=== PATIENT | male | born 1985 | race American Indian/Alaskan Native ===

== ENCOUNTER 2019-10-24 22:11 | Emergency (ER) | payer SELFPAY ==
--- NOTE | 2019-10-24 22:19 | Event Note ---
ED Screening Note Date of service: 10/24/19 Time: 22:18 ED Screening Note: This is a 34 y.o. M. that presents to the ER with sore throat and dysphasia for 3 days. This initial assessment/diagnostic orders/clinical plan/treatment(s) is/are subject to change based on patients health status, clinical progression and re- assessment by fellow clinical providers in the ED. Further treatment and workup at subsequent clinical providers discretion. Patient/guardian urged not to elope from the ED as their condition may be serious if not clinically assessed and managed. Initial orders include: Rapid strep
[2019-10-25] MEDS ORDERED: methylPREDNISolone Sod Succinate 125 MG/2 ML INJ IV ONE (02:05)
[2019-10-25] MEDS ORDERED: SODIUM CHLORIDE 0.9% 1000 ML 1,000 ML IV ONE (02:07)
[2019-10-25 02:32] LABS: Basophils # (Auto) 0.1 K/mm3 (0.0-0.1); Basophils % (Auto) 0.5 % (0.0-1.8); Eosinophils % (Auto) 0.1 % (0.0-4.3); Hematocrit 44.4 % (35.5-45.6); Hemoglobin 15.4 gm/dl (11.8-15.2); Lymphocytes # (Auto) 1.1 K/mm3 (1.2-5.4); Lymphocytes % (Auto) 7.5 % (13.4-35.0); Mean Corpuscular HGB Conc 35 % (32-34); Mean Corpuscular Volume 92 fl (84-94); Monocytes # (Auto) 1.7 K/mm3 (0.0-0.8); Monocytes % (Auto) 11.5 % (0.0-7.3); Platelet Count 254 K/mm3 (140-440); Red Blood Count 4.82 M/mm3 (3.65-5.03); Red Cell Distribution Width 12.9 % (13.2-15.2)
[2019-10-25 02:52] LABS: BUN/Creatinine Ratio 10; Blood Urea Nitrogen 10 mg/dL (9-20); Calcium 10.7 mg/dL (8.4-10.2); Hemolysis Index 10
--- NOTE | 2019-10-25 03:28 | Cat Scan Report ---
CT neck w con INDICATION / CLINICAL INFORMATION: 34 years Male; left tonsillar edema, r/o abscess. TECHNIQUE: Contiguous thin cut axial images obtained through the neck following IV contrast. Sagittal and blair l reconstructions performed by the technologist. All CT scans at this location are performed using CT dose reduction for ALARA by means of automated exposure control. COMPARISON: None available. FINDINGS: Left tonsillar region is asymmetrically swollen when compared with the right. Tonsillar and peritonsillar areas of decreased attenuation are seen, most likely representing phlegmon. At least o ne area is starting to develop rim enhancement, suggesting early abscess formation. This area measure s approximately 15 mm in maximum dimension. There is mild edema in the left parapharyngeal space. Sma ll amount of edema seen in the retropharyngeal space is well-no signs of abscess formation in this re gion. MUCOSAL SPACE: Otherwise, the nasopharynx, oropharynx and vallecula, oral cavity and floor of mouth, hypopharynx, and larynx are grossly normal. Note, lingual tonsillar and right palatine tonsil is mild ly prominent, presumably reactive. LYMPH NODES: Prominent lymph nodes are identified in the level 2 regions, presumably reactive. Mildly prominent level 3 and 4 nodes are noted. No signs of suppurative lymph node seen. SALIVARY GLANDS: Parotid, submandibular, and visualized sublingual glands are within normal limits. THYROID GLAND: Unremarkable. PARANASAL SINUSES: Visualized paranasal sinuses and mastoid air cells are essentially clear. SPINE: No significant abnormality of the cervical spine appreciated. VASCULAR STRUCTURES: Vascular structures are grossly normal in appearance. Surrounding soft tissues are otherwise grossly normal. IMPRESSION: 1. Swollen left tonsillar/peritonsillar region. Phlegmon/early abscess formation suggested, as descri bed above. Associated, presumed reactive adenopathy seen as well. Signer Name: Darin Hamilton MD, III Signed: 10/25/2019 3:24 AM Workstation Name: [id number]
[2019-10-25] MEDS ORDERED: MORPHINE 2 MG/1 ML INJ IV ONE (03:54)
[2019-10-25] MEDS ORDERED: fentaNYL 100 MCG/2 ML INJ IV ONE (03:54)
[2019-10-25] MEDS ORDERED: SODIUM CHLORIDE 0.9% 1000 ML 1,500 ML IV ONE (03:55)
--- NOTE | 2019-10-25 03:59 | Emergency Department Report ---
ED General Adult HPI - General Chief complaint: Neck Pain/Injury Stated complaint: SWOLLEN NECK/ANNE/CHOAKING Time Seen by Provider: 10/24/19 22:16 Source: patient Mode of arrival: Ambulatory Limitations: No Limitations - History of Present Illness Initial comments: pt is a 34-year-old male who presents emergency room with complaint of a sore throat that began 3 days ago. He states that he has pain on the left side of his neck. He states he is not able to tolerate his secretions and is having to spit out his spit. He states he has a subjective fever. He denies any difficulty breathing, vomiting, any other symptoms. He denies ever having this in the past. He states he has a past medical history of GERD. He denies any allergies medications. - Related Data Allergies Allergy/AdvReac Type Severity Reaction Status Date / Time No Known Allergies Allergy Verified 10/25/19 04:29 ED Review of Systems ROS: Stated complaint: SWOLLEN NECK/ANNE/CHOAKING Other details as noted in HPI Comment: All other systems reviewed and negative ED Past Medical Hx - Past Medical History Previous Medical History?: Yes Hx GERD: Yes - Surgical History Past Surgical History?: Yes Additional Surgical History: Right Shoulder - Social History Smoking Status: Current Every Day Smoker Substance Use Type: Marijuana ED Physical Exam - General Limitations: No Limitations General appearance: alert, in no apparent distress - Head Head exam: Present: atraumatic, normocephalic - Eye Eye exam: Present: normal appearance - ENT ENT exam: Present: mucous membranes moist, other (left sided peritonsillar edema with exudates present, uvula is shifted, no uvular edema, no airway compromise at this time) - Respiratory Respiratory exam: Present: normal lung sounds bilaterally. Absent: respiratory distress, wheezes, rales, rhonchi, stridor, chest wall tenderness, accessory muscle use, decreased breath sounds, prolonged expiratory - Cardiovascular Cardiovascular Exam: Present: regular rate, normal rhythm, normal heart sounds. Absent: systolic murmur, diastolic murmur, rubs, gallop - Neurological Exam Neurological exam: Present: alert, oriented X3 - Psychiatric Psychiatric exam: Present: normal affect, normal mood - Skin Skin exam: Present: warm, dry, intact ED Course Vital Signs 10/24/19 10/25/19 10/25/19 22:18 04:28 04:29 Temperature 99.6 F Pulse Rate 109 H Respiratory 20 18 16 Rate Blood Pressure 159/106 Blood Pressure [Left] O2 Sat by Pulse 97 Oximetry 10/25/19 10/25/19 04:30 05:14 Temperature 98.2 F Pulse Rate 88 76 Respiratory 14 13 Rate Blood Pressure Blood Pressure 158/91 159/104 [Left] O2 Sat by Pulse 98 98 Oximetry - Consultations Consultation #1: 10/25/19 04:02 spoke to the [facility] transfer line, will call back 10/25/19 04:[address] Cabrera, ENT at [facility], will evaluate pt in the ED at [facility] 10/25/19 04:[address] Peace, ER attending at [facility], will accept and resume care of patient, will accept transfer of patient ED Medical Decision Making - Lab Data Result diagrams: 10/25/19 02:14 10/25/19 02:14 Lab Results 10/24/19 10/25/19 10/25/19 Range/Units Unknown 02:14 02:14 WBC 15.2 H (4.5-11.0) K/mm3 RBC 4.82 (3.65-5.03) M/mm3 Hgb 15.4 H (11.8-15.2) gm/dl Hct 44.4 (35.5-45.6) % MCV 92 (84-94) fl MCH 32 (28-32) pg MCHC 35 H (32-34) % RDW 12.9 L (13.2-15.2) % Plt Count 254 (140-440) K/mm3 Lymph % (Auto) 7.5 L (13.4-35.0) % [place] % (Auto) 11.5 H (0.0-7.3) % Eos % (Auto) 0.1 (0.0-4.3) % Baso % (Auto) 0.5 (0.0-1.8) % Lymph # 1.1 L (1.2-5.4) K/mm3 [place] # 1.7 H (0.0-0.8) K/mm3 Eos # 0.0 (0.0-0.4) K/mm3 Baso # 0.1 (0.0-0.1) K/mm3 Seg Neutrophils % 80.4 H (40.0-70.0) % Seg Neutrophils # 12.3 H (1.8-7.7) K/mm3 Sodium 140 (137-145) mmol/L Potassium 3.5 L (3.6-5.0) mmol/L Chloride 101.6 (98-107) mmol/L Carbon Dioxide 22 (22-30) mmol/L Anion Gap 20 mmol/L BUN 10 (9-20) mg/dL Creatinine 1.0 (0.8-1.5) mg/dL Estimated GFR > 60 ml/min BUN/Creatinine Ratio 10 % Glucose 95 (75-100) mg/dL Calcium 10.7 H (8.4-10.2) mg/dL Group A Strep Rapid Negative (Negative) - Radiology Data Radiology results: report reviewed CT neck w con INDICATION / CLINICAL INFORMATION: 34 years Male; left tonsillar edema, r/o abscess. TECHNIQUE: Contiguous thin cut axial images obtained through the neck following IV contrast. Sagittal and coronal reconstructions performed by the technologist. All CT scans at this location are performed using CT dose reduction for ALARA by means of automated exposure control. COMPARISON: None available. FINDINGS: Left tonsillar region is asymmetrically swollen when compared with the right. Tonsillar and peritonsillar areas of decreased attenuation are seen, most likely representing phlegmon. At least one area is starting to develop rim enhancement, suggesting early abscess formation. This area measures approximately 15 mm in maximum dimension. There is mild edema in the left parapharyngeal space. Small amount of edema seen in the retropharyngeal space is well-no signs of abscess formation in this region. MUCOSAL SPACE: Otherwise, the nasopharynx, oropharynx and vallecula, oral cavity and floor of mouth, hypopharynx, and larynx are grossly normal. Note, lingual tonsillar and right palatine tonsil is mildly prominent, presumably reactive. LYMPH NODES: Prominent lymph nodes are identified in the level 2 regions, presumably reactive. Mildly prominent level 3 and 4 nodes are noted. No signs of suppurative lymph node seen. SALIVARY GLANDS: Parotid, submandibular, and visualized sublingual glands are within normal limits. THYROID GLAND: Unremarkable. PARANASAL SINUSES: Visualized paranasal sinuses and mastoid air cells are essentially clear. SPINE: No significant abnormality of the cervical spine appreciated. VASCULAR STRUCTURES: Vascular structures are grossly normal in appearance. Surrounding soft tissues are otherwise grossly normal. IMPRESSION: 1. Swollen left tonsillar/peritonsillar region. Phlegmon/early abscess formation suggested, as described above. Associated, presumed reactive adenopathy seen as well. Signer Name: Darin Hamilton MD, III Signed: 10/25/2019 3:24 AM Workstation Name: [id number] Transcribed By: HR Dictated By: Darin Hamilton MD Electronically Authenticated By: Darin Hamilton MD Signed Date/Time: 10/25/19323 DD/ 6 TD/TT: - Medical Decision Making pt is a 34-year-old male who presents emergency room with complaint of a sore throat that began 3 days ago. He states that he has pain on the left side of his neck. He states he is not able to tolerate his secretions and is having to spit out his spit. He states he has a subjective fever. He denies any difficulty breathing, vomiting, any other symptoms. He denies ever having this in the past. He states he has a past medical history of GERD. He denies any allergies medications. Vitals with tachycardia which improved upon repeat. on exam: left sided peritonsillar edema with exudates present, uvula is shifted, no uvular edema, no airway compromise at this time. Rapid strep is negative. Labs with leukocytosis at 15,000. CT neck with contrast: 1. Swollen left tonsil lar/peritonsillar region. Phlegmon/early abscess formation suggested, as described above. Associated, presumed reactive adenopathy seen as well. Patient given steroids, antibiotics, fluids, pain medication. discussed case with Dr. Garcia who evaluated patient and recommended transfer to another facility who has ENT services available. Spoke with Dr. Cabrera, ENT at [facility], will evaluate pt in the ED at [facility].Spoke with Dr. Peace, ER attending at [facility], will accept and resume care of patient, will accept transfer of patient. - Differential Diagnosis strep throat, tonsillitis, peritonsillar abscess, epiglotitits Critical care attestation.: If time is entered above; I have spent that time in minutes in the direct care of this critically ill patient, excluding procedure time. ED Disposition Clinical Impression: Peritonsillar abscess, SIRS (systemic inflammatory response syndrome) Disposition: DC/TX-70 ANOTHER TYPE HLTHCARE Is pt being admited?: No Does the pt Need Aspirin: No Condition: Fair Time of Disposition: 04:21 Print Language: BERMUDIAN
--- NOTE | 2019-10-25 03:59 | Event Note ---
Date of service: 10/25/19 Face to Face: 34-year-old gentleman presenting with nonsmoker left-sided tonsillar pain and swelling, mild trismus, no dysphonia, speaking in full substances, protecting airway, presenting with probable sepsis secondary to peritonsillar abscess and phlegmon. Fluids, antibiotics, pain medicine, steroids ordered. We do not have ENT available for consultation this facility. We have recommended transfer to facility that has ENT capability. Discussed this with the patient who verbalizes understanding and is amenable to this plan of care. Discussed this with physician Asst. Clement, who verbalizes understanding, she will coordinate transfer with an accepting facility. Lab Results 10/24/19 10/25/19 10/25/19 Range/Units Unknown 02:14 02:14 WBC 15.2 H (4.5-11.0) K/mm3 RBC 4.82 (3.65-5.03) M/mm3 Hgb 15.4 H (11.8-15.2) gm/dl Hct 44.4 (35.5-45.6) % MCV 92 (84-94) fl MCH 32 (28-32) pg MCHC 35 H (32-34) % RDW 12.9 L (13.2-15.2) % Plt Count 254 (140-440) K/mm3 Lymph % (Auto) 7.5 L (13.4-35.0) % [place] % (Auto) 11.5 H (0.0-7.3) % Eos % (Auto) 0.1 (0.0-4.3) % Baso % (Auto) 0.5 (0.0-1.8) % Lymph # 1.1 L (1.2-5.4) K/mm3 [place] # 1.7 H (0.0-0.8) K/mm3 Eos # 0.0 (0.0-0.4) K/mm3 Baso # 0.1 (0.0-0.1) K/mm3 Seg Neutrophils % 80.4 H (40.0-70.0) % Seg Neutrophils # 12.3 H (1.8-7.7) K/mm3 Sodium 140 (137-145) mmol/L Potassium 3.5 L (3.6-5.0) mmol/L Chloride 101.6 (98-107) mmol/L Carbon Dioxide 22 (22-30) mmol/L Anion Gap 20 mmol/L BUN 10 (9-20) mg/dL Creatinine 1.0 (0.8-1.5) mg/dL Estimated GFR > 60 ml/min BUN/Creatinine Ratio 10 % Glucose 95 (75-100) mg/dL Calcium 10.7 H (8.4-10.2) mg/dL Group A Strep Rapid Negative (Negative) Lab Results 10/24/19 10/25/19 10/25/19 Range/Units Unknown 02:14 02:14 WBC 15.2 H (4.5-11.0) K/mm3 RBC 4.82 (3.65-5.03) M/mm3 Hgb 15.4 H (11.8-15.2) gm/dl Hct 44.4 (35.5-45.6) % MCV 92 (84-94) fl MCH 32 (28-32) pg MCHC 35 H (32-34) % RDW 12.9 L (13.2-15.2) % Plt Count 254 (140-440) K/mm3 Lymph % (Auto) 7.5 L (13.4-35.0) % [place] % (Auto) 11.5 H (0.0-7.3) % Eos % (Auto) 0.1 (0.0-4.3) % Baso % (Auto) 0.5 (0.0-1.8) % Lymph # 1.1 L (1.2-5.4) K/mm3 [place] # 1.7 H (0.0-0.8) K/mm3 Eos # 0.0 (0.0-0.4) K/mm3 Baso # 0.1 (0.0-0.1) K/mm3 Seg Neutrophils % 80.4 H (40.0-70.0) % Seg Neutrophils # 12.3 H (1.8-7.7) K/mm3 Sodium 140 (137-145) mmol/L Potassium 3.5 L (3.6-5.0) mmol/L Chloride 101.6 (98-107) mmol/L Carbon Dioxide 22 (22-30) mmol/L Anion Gap 20 mmol/L BUN 10 (9-20) mg/dL Creatinine 1.0 (0.8-1.5) mg/dL Estimated GFR > 60 ml/min BUN/Creatinine Ratio 10 % Glucose 95 (75-100) mg/dL Calcium 10.7 H (8.4-10.2) mg/dL Group A Strep Rapid Negative (Negative) Print Report Referring Physician: RAHAT CLEMENT Patient Name: ANT CHING Date of : 1985 Sex: Male Report Date: 2019-10-25 Report Status: [place] [address] Cat Scan Report Signed Patient: ANT CHING MR #: [id number] : 1985 Acct:[id number] Age/Sex: 34 / M ADM Date: 10/24/19 Loc: ED Attending Dr: Ordering Physician: PAMELA ESPINOZA Date of Service: 10/25/19 Procedure(s): CT neck w con Accession Number(s): [id number] cc: PAMELA ESPINOZA CT neck w con INDICATION / CLINICAL INFORMATION: 34 years Male; left tonsillar edema, r/o abscess. TECHNIQUE: Contiguous thin cut axial images obtained through the neck following IV contrast. Sagittal and coronal reconstructions performed by the technologist. All CT scans at this location are performed using CT dose reduction for ALARA by means of automated exposure control. COMPARISON: None available. FINDINGS: Left tonsillar region is asymmetrically swollen when compared with the right. Tonsillar and peritonsillar areas of decreased attenuation are seen, most likely representing phlegmon. At least one area is starting to develop rim enhancement, suggesting early abscess formation. This area measures approximately 15 mm in maximum dimension. There is mild edema in the left parapharyngeal space. Small amount of edema seen in the retropharyngeal space is well-no signs of abscess formation in this region. MUCOSAL SPACE: Otherwise, the nasopharynx, oropharynx and vallecula, oral cavity and floor of mouth, hypopharynx, and larynx are grossly normal. Note, lingual tonsillar and right palatine tonsil is mildly prominent, presumably reactive. LYMPH NODES: Prominent lymph nodes are identified in the level 2 regions, presumably reactive. Mildly prominent level 3 and 4 nodes are noted. No signs of suppurative lymph node seen. SALIVARY GLANDS: Parotid, submandibular, and visualized sublingual glands are within normal limits. THYROID GLAND: Unremarkable. PARANASAL SINUSES: Visualized paranasal sinuses and mastoid air cells are essentially clear. SPINE: No significant abnormality of the cervical spine appreciated. VASCULAR STRUCTURES: Vascular structures are grossly normal in appearance. Surrounding soft tissues are otherwise grossly normal. IMPRESSION: 1. Swollen left tonsillar/peritonsillar region. Phlegmon/early abscess formation suggested, as described above. Associated, presumed reactive adenopathy seen as well. Signer Name: Darin Hamilton MD, III Signed: 10/25/2019 3:24 AM Workstation Name: [id number] Transcribed By: HR Dictated By: Darin Hamilton MD Electronically Authenticated By: Darin Hamilton MD Signed Date/Time: 10/25/19 0324
[2019-10-25 05:39] VITALS: BP 159/104
== END 2019-10-25 08:53 | disposition other institution (70) ==
LOC: ED 22:11
DX: J36 Peritonsillar abscess (principal); R65.10 Systemic inflammatory response syndrome (SIRS) of non-infectious origin without acute organ dysfunction; K21.9 Gastro-esophageal reflux disease without esophagitis; F17.200 Nicotine dependence, unspecified, uncomplicated; F12.10 Cannabis abuse, uncomplicated
CPT/HCPCS: 36415; 70491; 80048; 85025; 87116; 87430; 96365; 96375; 99285; J2270; J2930; J3010; J7030; Q9967